=== PATIENT | male | born 1950 | race Caucasian/White ===

== ENCOUNTER → 2016-11-21 | Outpatient (CLI) | payer OTHER ==
[~2016-11-21] MED LIST: ALL300 PO; ANDG TOP; THEO300T5; [UNRECOGNIZED DRUG - OTHER] INH
[2016-11-21 13:26] LABS: BASO % 0.7 %; BASO ABS # 0.04 K/uL (0-0.2); COMPLETE YES; EOS % 2.3 %; HEMATOCRIT 44.8 % (42-52); IG% 0.2 %; LYMPH % 24.5 %; LYMPH ABS # 1.38 K/uL (1.2-3.4); MEAN CELL VOLUME 85.5 fL (80-100); MEAN CORPUSCULAR HGB CONC 33.9 g/dl (32-36); MEAN PLATELET VOLUME 10.9 fL (7.4-10.4); MONO % 10.5 %; NEUT % 61.8 %; PLATELET COUNT 254 K/uL (130-400); RED BLOOD COUNT 5.24 M/uL (4.7-6.1); WHITE BLOOD COUNT 5.63 K/uL (4.8-10.8)
[2016-11-21 13:33] LABS: URINE APPEARANCE CLEAR (CLEAR); URINE BILIRUBIN NEG (NEG); URINE COLOR DK YELLOW; URINE EPITHELIAL CELL AUTO 20-30 /lpf (0-5); URINE NITRITE NEG (NEG); URINE PH 5.5 (4.5-7.5); URINE SPECIFIC GRAVITY 1.027 (1.000-1.030); UROBILINOGEN NEG (NEG); ZZUR CULT IF INDIC CLEAN CATCH NO
[2016-11-21 13:36] LABS: MANUAL MICROSCOPIC REQUIRED? NO; REVIEW REQ? NO
[2016-11-21 13:39] LABS: ALT/SGPT 33 U/L (12-78); AST/SGOT 30 U/L (15-37); BLOOD UREA NITROGEN 19 mg/dl (7-18); BUN/CREATININE RATIO 14.3 (10-20); CALCIUM 8.5 mg/dl (8.5-10.1); CARBON DIOXIDE 26 mmol/L (21-32); CHLORIDE 105 mmol/L (98-107); GLUCOSE 92 mg/dl (70-99); SODIUM 139 mmol/L (136-145)
[2016-11-21 13:45] LABS: % FREE PSA 12.2 %; ALB/GLOB RATIO 0.9 (0.9-2); ALKALINE PHOSPHATASE 59 U/L (45-117); CHOLESTEROL 220 mg/dl (0-200); CHOLESTEROL/HDL RATIO 3.3; FREE PSA 0.74 ng/ml; HDL CHOLESTEROL 67 mg/dl; LDL CHOLESTEROL CALCULATED 146 mg/dl; TRIGLYCERIDES 35 mg/dl (0-150); URIC ACID 5.1 mg/dl (2.6-7.2); VERY LOW DENSITY LIPOPROT CALC 7 mg/dl
== END | disposition home or self-care (01) ==
LOC: C.LABBC 10:46
PROVIDERS: ATTEND Urology
DX: Z00.00 Encounter for general adult medical examination without abnormal findings (principal); R39.11 Hesitancy of micturition; N40.0 Benign prostatic hyperplasia without lower urinary tract symptoms; M10.9 Gout, unspecified; E78.5 Hyperlipidemia, unspecified

== ENCOUNTER → 2016-12-21 | Outpatient (CLI) | payer OTHER, MEDICARE ==
[2016-12-21 13:25] LABS: BLOOD UREA NITROGEN 21 mg/dl (7-18); BUN/CREATININE RATIO 15.5 (10-20); CREATININE 1.37 mg/dl (0.60-1.40)
[2016-12-21 13:45] LABS: URINE APPEARANCE CLEAR (CLEAR); URINE BILIRUBIN NEG (NEG); URINE COLOR DK YELLOW; URINE EPITHELIAL CELL AUTO 0-5 /lpf (0-5); URINE NITRITE NEG (NEG); URINE SPECIFIC GRAVITY 1.025 (1.000-1.030); UROBILINOGEN NEG (NEG)
[2016-12-21 13:52] LABS: MANUAL MICROSCOPIC REQUIRED? NO; REVIEW REQ? NO
== END | disposition home or self-care (01) ==
LOC: C.LABBC 12:01
PROVIDERS: ATTEND Urology
DX: R31.9 Hematuria, unspecified (principal); R39.11 Hesitancy of micturition; R97.20 Elevated prostate specific antigen [PSA]

== ENCOUNTER → 2016-12-22 | Outpatient (CLI) | payer OTHER, MEDICARE ==
[~2016-12-22] MED LIST changes: +OPTIRAY 320 IV PRN
--- NOTE | 2016-12-22 10:04 | DIAGNOSTIC IMAGING REPORT ---
ABDOMEN AND PELVIS CT WITH AND WITHOUT IV CONTRAST, UROGRAM PROTOCOL CT DOSE: 680.38 mGycm HISTORY: HEMATURIA TECHNIQUE: Multiaxial CT images of the abdomen and pelvis were performed both before and after the use of intravenous contrast to evaluate the urinary system. Maximal intensity projection images were performed at the workstation by the radiologist. A dose lowering technique was utilized adhering to the principles of ALARA. COMPARISON STUDY: None. FINDINGS: There are 2 stones within the upper pole of the right kidney with the largest measuring 7 mm. No ureteral stones. No hydronephrosis. There are 2 punctate stones within the left side of the bladder.Mild bladder wall thickening. No suspicious filling defects seen within the bilateral renal collecting systems, ureters, or bladder. Bibasilar linear densities favor subsegmental atelectasis are scarring. Bilateral L5 spondylolysis. There are few hypodense lesions within the right hepatic lobe with the largest measuring 1.2 cm. These favor small cysts. The gallbladder, pancreas, spleen, and adrenal glands are unremarkable. The kidneys enhance normally. No retroperitoneal lymphadenopathy. Normal caliber abdominal aorta. The prostate is enlarged measuring 5.5 cm in length and protrudes into the bladder base. Prior right inguinal hernia repair. No bowel wall thickening or obstruction. Proliferation of the central mesenteric fat with associated fast stranding. This favors a mesenteric panniculitis. IMPRESSION: 1. Right-sided nephrolithiasis. No ureteral stones. No hydronephrosis. 2. No suspicious filling defects seen within the opacified bilateral renal collecting systems, ureters, or bladder. 3. Mild bladder wall thickening. This may be due to the enlarged prostate gland. 4. Mesenteric panniculitis. 5. Additional findings as described above Electronically signed by: Gregg Rondon M.D. 12/22/2016 10:03 AM Dictated Date/Time: 12/22/2016 9:48 AM
== END | disposition home or self-care (01) ==
LOC: C.CTS 09:12
PROVIDERS: ATTEND Urology
DX: R31.9 Hematuria, unspecified (principal); N20.0 Calculus of kidney; K65.4 Sclerosing mesenteritis

== ENCOUNTER → 2017-05-29 | Outpatient (CLI) | payer OTHER, MEDICARE ==
[~2017-05-29] MED LIST changes: -OPTIRAY 320 IV PRN
--- NOTE | 2017-05-29 10:14 | DIAGNOSTIC IMAGING REPORT ---
[facility]UB CLINICAL HISTORY: Nephrolithiasis. FINDINGS: An AP supine abdominal radiograph is correlated with abdominal CT dated 12/22/2016. There is a 1.0 cm nonobstructing calculus projecting over the right kidney. No calcifications are seen projecting over the left kidney or along the course of the ureters. No bowel obstruction is seen. There is moderate colonic fecal retention. Postoperative change from right inguinal herniorrhaphy is identified. The bony structures appear intact. IMPRESSION: Nonobstructing right renal calculus, similar to previous. Electronically signed by: Saul Pro M.D. 05/29/2017 10:13 AM Dictated Date/Time: 05/29/2017 10:10 AM
== END | disposition home or self-care (01) ==
LOC: C.RAD 09:46
PROVIDERS: ATTEND Urology
DX: N20.0 Calculus of kidney (principal)

== ENCOUNTER → 2017-06-05 | Outpatient (CLI) | payer OTHER, MEDICARE ==
[~2017-06-05] MED LIST changes: +ALBUAER INH; +BUDE180I INH; +FLM4 PO; +OMEG10007 PO; -THEO300T5; +THEO300T5 PO
--- NOTE | 2017-06-05 14:44 | DIAGNOSTIC IMAGING REPORT ---
CHEST 2 VIEWS ROUTINE CLINICAL HISTORY: N20.0 Nephrolithiasis, preoperative chest COMPARISON STUDY: February 2009 FINDINGS: The cardiac and mediastinal contours are normal. There is no evidence of focal pulmonary consolidation. There is no evidence of failure. No pleural effusions are visualized.[ IMPRESSION: No active disease in the chest. Electronically signed by: Isiah Gutierrez M.D. 06/05/2017 2:42 PM Dictated Date/Time: 06/05/2017 2:41 PM
[2017-06-05 15:34] LABS: BASO ABS # 0.06 K/uL (0-0.2); EOS % 1.7 %; EOS ABS # 0.11 K/uL (0-0.5); HEMATOCRIT 42.1 % (42-52); HEMOGLOBIN 14.1 g/dL (14.0-18.0); IG# 0.01 K/uL (0.00-0.02); LYMPH % 30.5 %; LYMPH ABS # 1.92 K/uL (1.2-3.4); MEAN CELL VOLUME 85.2 fL (80-100); MEAN CORPUSCULAR HEMOGLOBIN 28.5 pg (25-34); MEAN CORPUSCULAR HGB CONC 33.5 g/dl (32-36); MEAN PLATELET VOLUME 11.1 fL (7.4-10.4); MONO % 8.1 %; MONO ABS # 0.51 K/uL (0.11-0.59); NEUT % 58.5 %; NEUT ABS # 3.68 K/uL (1.4-6.5); PLATELET COUNT 235 K/uL (130-400); WHITE BLOOD COUNT 6.29 K/uL (4.8-10.8)
[2017-06-05 15:59] LABS: BLOOD UREA NITROGEN 19 mg/dl (7-18); CARBON DIOXIDE 28 mmol/L (21-32); CREATININE 1.25 mg/dl (0.60-1.40); POTASSIUM 3.7 mmol/L (3.5-5.1); SODIUM 137 mmol/L (136-145)
== END | disposition home or self-care (01) ==
LOC: C.LAB 14:01
PROVIDERS: ATTEND Urology
DX: N20.0 Calculus of kidney (principal)